=== PATIENT | female | born 1985 | race Caucasian/White ===

== ENCOUNTER 2018-11-03 11:56 | Outpatient (REF) | payer OTHER, SELFPAY ==
--- NOTE | 2018-11-03 11:30 | PAPFT_PTH ---
PATIENT: Hannah Henriquez LOC: [facility] U#:[id number] AGE/SX: 33/F ROOM: RE11/03/[address]: ALEXANDRIA Luis : 1985 BED: DIS: 11/03/2018 SPEC #: [id number] RECD: 11/03/18 12:48 STATUS: GAYATHRI REAmanda #: [id number] ZAHIDA: 11/03/18 11:[address]: Alice Solitario DEPT: [facility] Cytology RECD BY: Daily Guzman ENTERED: 11/03/18 12:48 SP TYPE: PAPFT OTHR DR: Cookie Ruiz Tissues: 1 - CX/ENDOCX FOR PAP SMEARS Procedures: PAP THIN PREP/UVM Screening HPV DNA PROBE Comments: [id number]
== END 2018-11-03 12:16 ==
LOC: LBN 11:56
PROVIDERS: PCP Physician Assistant Medical; Visit Provider Nurse Practitioner Family
DX: Z12.4 Encounter for screening for malignant neoplasm of cervix (principal); Z11.51 Encounter for screening for human papillomavirus (HPV)
CPT/HCPCS: 88142; 87624

== ENCOUNTER 2020-08-19 15:18 | Outpatient (REF) | payer OTHER, SELFPAY ==
[2020-08-21 17:40] LABS: COVID-19 RT-PCR UVMMC Result Negative (Negative)
== END 2020-08-19 15:19 | disposition home or self-care (01) ==
LOC: LBN 15:18
PROVIDERS: PCP Physician Assistant Medical; Visit Provider Physician Assistant Medical
DX: Z20.822 Contact with and (suspected) exposure to COVID-19 (principal)
CPT/HCPCS: U0003

== ENCOUNTER 2020-12-04 19:19 | Outpatient (REF) | payer OTHER, SELFPAY ==
[2020-12-05 19:56] LABS: COVID-19 RT-PCR UVMMC Result Negative (Negative)
== END 2020-12-04 19:20 | disposition home or self-care (01) ==
LOC: LBN 19:19
PROVIDERS: PCP Physician Assistant Medical; Visit Provider Physician Assistant
DX: Z20.822 Contact with and (suspected) exposure to COVID-19 (principal)
CPT/HCPCS: U0003

== ENCOUNTER 2020-12-14 20:33 | Outpatient (REF) | payer OTHER, SELFPAY ==
[2020-12-15 22:46] LABS: COVID-19 RT-PCR UVMMC Result Negative (Negative)
== END 2020-12-14 20:34 | disposition home or self-care (01) ==
LOC: LBN 20:33
PROVIDERS: PCP Physician Assistant Medical; Visit Provider Physician Assistant Medical
DX: Z20.822 Contact with and (suspected) exposure to COVID-19 (principal); J02.9 Acute pharyngitis, unspecified
CPT/HCPCS: U0003; 87070

== ENCOUNTER 2021-01-22 16:49 | Outpatient (REF) | payer OTHER, SELFPAY ==
[2021-01-24 11:25] LABS: COVID-19 RT-PCR UVMMC Result Negative (Negative)
== END 2021-01-22 16:50 | disposition home or self-care (01) ==
LOC: LBN 16:49
PROVIDERS: PCP Physician Assistant Medical; Visit Provider Nurse Practitioner Family
DX: Z20.822 Contact with and (suspected) exposure to COVID-19 (principal)
CPT/HCPCS: U0003

== ENCOUNTER 2021-01-29 09:33 | Outpatient (REF) | payer OTHER, SELFPAY ==
[2021-01-30 03:23] LABS: COVID-19 RT-PCR UVMMC Result Negative (Negative)
== END 2021-01-29 09:34 | disposition home or self-care (01) ==
LOC: LBN 09:33
PROVIDERS: PCP Physician Assistant Medical; Visit Provider Nurse Practitioner Family
DX: Z11.52 Encounter for screening for COVID-19 (principal)
CPT/HCPCS: U0003

== ENCOUNTER 2021-02-07 23:10 | Outpatient (REF) | payer OTHER, SELFPAY ==
[2021-02-09 02:06] LABS: COVID-19 RT-PCR UVMMC Result Negative (Negative)
== END 2021-02-07 23:11 | disposition home or self-care (01) ==
LOC: LBN 23:10
PROVIDERS: PCP Physician Assistant Medical; Visit Provider Physician Assistant Medical
DX: Z20.822 Contact with and (suspected) exposure to COVID-19 (principal)
CPT/HCPCS: U0003

== ENCOUNTER 2021-04-22 17:05 | Emergency (ER) | payer OTHER, SELFPAY ==
[2021-04-22] VITALS (11 sets, daily range): BP systolic 138–148; BP diastolic 52–90; PULSE 84–96; RESP 12–22; TEMP 36.2; O2SAT 98–100
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
[2021-04-22] MEDS: Omnipaque 350 MG/ML 100 ML BTL IJ (18:00)
[2021-04-22] MEDS: Normal Saline Flush 10 ML SYR IVP (18:01)
[2021-04-22] MEDS: Normal Saline 1,000 ML 1000 ML IV (18:30)
[2021-04-22] MEDS: diazePAM 5 MG TAB PO ×2 (18:35→20:40)
[2021-04-22] MEDS: Ondansetron 4 MG/2 ML VIAL IVP (18:37)
[2021-04-22] MEDS: ACETAMINOPHEN 1,000 MG/100 ML BTL 400 MG IVPB (18:39)
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
[2021-04-22 19:41] LABS: Abs Immature Grans 0.02 10^3/uL (0.0-0.06); Absolute Basophil Count 0.03 10^3/uL (0.0-0.2); Absolute Eosinophil Count 0.13 10^3/uL (0.0-0.7); Absolute Lymphocyte Count 2.47 10^3/uL (1.2-3.4); Absolute Monocyte Count 0.63 10^3/uL (0.1-0.8); Absolute Neutrophil Count 4.45 10^3/uL (1.2-6.7); Basophils % 0.4; Eosinophils % 1.7; HCT 37.4 % (36.0-46.0); HGB 12.8 g/dL (11.2-15.7); Immature Grans % 0.3; MCHC 34.2 % (32.0-36.0); MCV 90.6 fL (80-95); MPV 10.6 fL (8.0-11.0); Monocytes % 8.2; Neutrophils % 57.4; Nucleated RBC 0 %; Platelet Count 374 10^3/uL (130-400); RBC 4.13 10^6/uL (3.93-5.22); RDW-SD 39.9 fL; WBC 7.73 10^3/uL (4.4-10.8)
[2021-04-22 19:57] LABS: HCG Qual (Serum) Negative
[2021-04-22 20:00] LABS: ALT 39 U/L (14-59); AST 22 U/L (15-37); Albumin 3.5 g/dL (3.4-5.0); Alkaline Phosphatase 87 U/L (46-116); Anion Gap 10.2 mmol/L (3-11); BUN 12 mg/dL (7-18); Bilirubin, Total 0.1 mg/dL (0.2-1.0); CO2 25.8 mmol/L (21.0-32.0); Calcium 8.8 mg/dL (8.5-10.1); Chloride 103 mmol/L (98-107); Glucose 78 mg/dL (74-106); Potassium 3.4 mmol/L (3.5-5.1); Sodium 139 mmol/L (136-145); Total Protein 7.1 g/dL (6.4-8.2)
--- NOTE | 2021-04-22 20:02 | NUR.NOTE ---
cervical collar removed with clearance from MD Nursing Note:
== END 2021-04-22 20:43 | disposition home or self-care (01) ==
PROVIDERS: Emergency Provider Physician Assistant; PCP Physician Assistant Medical
DX: S16.1XXA Strain of muscle, fascia and tendon at neck level, initial encounter (principal); R51.9 Headache, unspecified; R07.9 Chest pain, unspecified; R10.11 Right upper quadrant pain; V47.5XXA Car driver injured in collision with fixed or stationary object in traffic accident, initial encounter
CPT/HCPCS: 36415; 74177; 80053; 81025; 96361; 96365; 96375; 99285; 70450; 70486; 71260; 72125; 72128; 72131; 84703; 85025; 99284; J0131; J2405; J3490

== ENCOUNTER 2021-07-04 17:17 | Outpatient (REF) | payer OTHER, SELFPAY ==
[2021-07-06 10:10] LABS: HSV Type 1 Ab, IgG Negative (Negative); HSV Type 2 Ab, IgG Negative (Negative)
[2021-07-06 11:09] LABS: COVID-19 RT-PCR UVMMC Result Negative (Negative)
== END 2021-07-04 17:18 | disposition home or self-care (01) ==
LOC: LBN 17:17
PROVIDERS: PCP Physician Assistant Medical; Visit Provider Nurse Practitioner Family
DX: K13.70 Unspecified lesions of oral mucosa (principal); Z11.59 Encounter for screening for other viral diseases; Z20.822 Contact with and (suspected) exposure to COVID-19
CPT/HCPCS: U0003; 86695; 86696

== ENCOUNTER 2021-08-16 12:15 | Outpatient (REF) | payer OTHER, SELFPAY ==
--- NOTE | 2021-08-16 11:41 | PAPFT_PTH ---
PATIENT: Hannah Henriquez LOC: [facility] U#:[id number] AGE/SX: 36/F ROOM: RE08/16/[address]: Najma Valdovinos : 1985 BED: DIS: 08/16/2021 SPEC #: [id number] RECD: 08/16/21 18:29 STATUS: GAYATHRI REAmanda #: [id number] ZAHIDA: 08/16/21 11:[address]: Najma Valdovinos DEPT: [facility] Cytology RECD BY: Daily Guzman ENTERED: 08/16/21 18:30 SP TYPE: PAPFT OTHR DR: Cookie Ruiz Tissues: 1 - CX/ENDOCX FOR PAP SMEARS Procedures: PAP THIN PREP/UVM Screening HPV DNA PROBE Comments: [id number]
== END 2021-08-16 12:16 | disposition home or self-care (01) ==
LOC: LBN 12:15
PROVIDERS: PCP Physician Assistant Medical; Visit Provider Obstetrics & Gynecology Gynecology
DX: Z11.51 Encounter for screening for human papillomavirus (HPV) (principal)
CPT/HCPCS: 88142; 87624

== ENCOUNTER 2022-06-18 08:34 | Emergency (ER) | payer OTHER, SELFPAY ==
[2022-06-18] VITALS (27 sets, daily range): BP systolic 140–154; BP diastolic 84–98; PULSE 80–97; RESP 12–31; TEMP 36.8; O2SAT 98–100
--- NOTE | 2022-06-18 08:30 | RT.EKG_ITS ---
APPROVED REPORT Exam: Resting ECG Reason for Exam: chest pain Patient Location: E HR:98 bpm ECG Measurements Heart Rate 98 AXIS MS 187 P 55 QRSd 92 QRS -29 QT 360 T 37 QTc 462 Conclusion Sinus rhythm...normal P axis, V-rate 60- 99 Low voltage, precordial leads...precordial leads <1.0mV
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
--- NOTE | 2022-06-18 09:05 | DI.RAD_ITS ---
Exam(s) XR PORTABLE CHEST AP EXAM: XR PORTABLE CHEST AP CLINICAL HISTORY: chest pain TECHNIQUE: 2D digital imaging was performed of the chest. One image was obtained. An AP view was ob tained. COMPARISON: CT CT CHEST/ABD/PEL W from 04/22/2021 FINDINGS: MEDIASTINUM: Normal. HEART: Normal. PULMONARY VASCULATURE: Normal. LUNGS: Clear. PLEURAL SPACE: No pleural effusion or pneumothorax. BONE:Within normal limits for the patient's age. OTHER FINDINGS:Normal. IMPRESSION: No acute pulmonary findings. DATA REPOSITORY: RADIATION DOSE DELIVERED:
[2022-06-18 09:15] LABS: Abs Immature Grans 0.02 10^3/uL (0.0-0.06); Absolute Basophil Count 0.06 10^3/uL (0.0-0.2); Absolute Eosinophil Count 0.16 10^3/uL (0.0-0.7); Absolute Lymphocyte Count 2.24 10^3/uL (1.2-3.4); Absolute Monocyte Count 0.51 10^3/uL (0.1-0.8); Absolute Neutrophil Count 3.54 10^3/uL (1.2-6.7); Basophils % 0.9; Eosinophils % 2.5; HCT 38.3 % (36.0-46.0); HGB 13.1 g/dL (11.2-15.7); Immature Grans % 0.3; Lymphocytes % 34.3; MCH 30.8 pg (27.0-33.0); MCHC 34.2 % (32.0-36.0); MCV 90 fL (80-95); MPV 9.8 fL (8.0-11.0); Monocytes % 7.8; Neutrophils % 54.2; Platelet Count 330 10^3/uL (130-400); RBC 4.25 10^6/uL (3.93-5.22); RDW 12.1 % (11.7-14.6); RDW-SD 39.7 fL; WBC 6.53 10^3/uL (4.4-10.8)
[2022-06-18 09:31] LABS: ALT 34 U/L (14-59); AST 17 U/L (15-37); Albumin 3.6 g/dL (3.4-5.0); Alkaline Phosphatase 88 U/L (46-116); Anion Gap 7.9 mmol/L (3-11); BUN 16 mg/dL (7-18); Bilirubin, Total 0.3 mg/dL (0.2-1.0); CO2 27.1 mmol/L (21.0-32.0); CREATININE 1.1 mg/dL (0.55-1.02); Calcium 8.8 mg/dL (8.5-10.1); Chloride 105 mmol/L (98-107); Estimated GFR 66.78 (mL/min/1.73m2); Glucose 89 mg/dL (74-106); Magnesium 2.2 mg/dL (1.8-2.4); NT-proBNP 15 pg/mL (<300); Potassium 4.1 mmol/L (3.5-5.1); Sodium 140 mmol/L (136-145); Troponin I < 50 ng/L (<or=60)
[2022-06-18 09:45] LABS: D-Dimer 222 ng/mlFEU (<500)
== END 2022-06-18 10:57 | disposition home or self-care (01) ==
PROVIDERS: Emergency Provider Emergency Medicine Emergency Medical Services; PCP Physician Assistant Medical
DX: M94.0 Chondrocostal junction syndrome [Tietze] (principal); I10 Essential (primary) hypertension; F41.9 Anxiety disorder, unspecified
CPT/HCPCS: 36415; 80053; 93005; 99283; 71045; 83735; 83880; 84484; 85025; 85379; 93010; 99284

== ENCOUNTER 2022-10-29 16:17 | Outpatient (REF) | payer OTHER, SELFPAY ==
[2022-10-31 13:00] LABS: Chlamydia Result Negative (Negative); GC Result Negative (Negative)
== END 2022-10-29 16:18 | disposition home or self-care (01) ==
LOC: LBN 16:17
PROVIDERS: PCP Physician Assistant Medical; Visit Provider Obstetrics & Gynecology
DX: Z11.3 Encounter for screening for infections with a predominantly sexual mode of transmission (principal)
CPT/HCPCS: 87491; 87591

== ENCOUNTER 2023-07-18 11:16 | Outpatient (REF) | payer OTHER, SELFPAY | END 2023-07-18 11:17 | disposition home or self-care (01) | LOC: LBN 11:16 | PROVIDERS: PCP Physician Assistant Medical; Visit Provider Physician Assistant Medical | DX: J02.9 Acute pharyngitis, unspecified (principal) | CPT/HCPCS: 87070 ==

== ENCOUNTER 2023-08-20 13:36 | Outpatient (CLI) | payer OTHER, SELFPAY ==
[2023-08-20 14:08] LABS: Vitamin D 25 Total 36.7 ng/mL (30-100)
== END 2023-08-20 13:37 | disposition home or self-care (01) ==
LOC: LBO 13:36
PROVIDERS: PCP Physician Assistant Medical; Visit Provider Obstetrics & Gynecology Gynecology
DX: F32.81 Premenstrual dysphoric disorder (principal)
CPT/HCPCS: 36415; 82306

== ENCOUNTER 2024-11-16 18:25 | Outpatient (REF) | payer OTHER, SELFPAY | END 2024-11-16 18:26 | disposition home or self-care (01) | LOC: LBN 18:25 | PROVIDERS: PCP Physician Assistant Medical; Visit Provider Nurse Practitioner Family | DX: L98.9 Disorder of the skin and subcutaneous tissue, unspecified (principal) | CPT/HCPCS: 87077; 87102; 87186; 87206 ==

== ENCOUNTER 2025-02-04 10:13 | Outpatient (CLI) | payer OTHER, SELFPAY ==
[2025-02-04 10:37] LABS: Abs Immature Grans 0.02 10^3/uL (0.0-0.06); HCT 36.0 % (36.0-46.0); HGB 12.2 g/dL (11.2-15.7); Immature Grans % 0.3 %; MCH 30.3 pg (27.0-33.0); MCHC 33.9 % (32.0-36.0); MCV 89 fL (80-95); MPV 9.8 fL (8.0-11.0); Platelet Count 330 10^3/uL (130-400); RBC 4.03 10^6/uL (3.93-5.22); RDW 12.3 % (11.7-14.6); RDW-SD 40.4 fL; WBC 7.06 10^3/uL (4.4-10.8)
[2025-02-04 10:55] LABS: Hemoglobin A1C 5.1 % (<5.7)
[2025-02-04 11:04] LABS: TSH (W/Ref FT4) 1.28 uIU/mL (0.55-4.78)
[2025-02-04 11:05] LABS: Vitamin D 25 Total 49 ng/mL (30-100)
[2025-02-04 11:07] LABS: Iron 105 ug/dL (50-170); Total Iron Binding Capacity 333 ug/dL (250-425); Transferrin Sat 32 % (15-50)
[2025-02-04 11:11] LABS: ALT 23 U/L (10-49); AST 19 U/L (<34); Albumin 4.2 g/dL (3.2-5.0); Alkaline Phosphatase 84 U/L (46-116); Anion Gap 9.6 mmol/L (3-11); BUN 14 mg/dL (9-23); Bilirubin, Total 0.3 mg/dL (0.2-1.2); CO2 25.4 mmol/L (20.0-31.0); Calcium 9.1 mg/dL (8.3-10.6); Chloride 107 mmol/L (98-107); Cholesterol 191 mg/dL (<200); Ferritin 40 ng/mL (7-271); Glucose 105 mg/dL (74-106); HDL Cholesterol 75 mg/dL (>40); Potassium 3.6 mmol/L (3.5-5.1); Sodium 142 mmol/L (136-145); Total Protein 6.8 g/dL (5.7-8.2)
== END 2025-02-04 10:14 | disposition home or self-care (01) ==
LOC: LBO 10:13
PROVIDERS: PCP Physician Assistant Medical; Visit Provider Obstetrics & Gynecology
DX: R03.0 Elevated blood-pressure reading, without diagnosis of hypertension (principal); R53.83 Other fatigue; Z72.3 Lack of physical exercise; Z01.419 Encounter for gynecological examination (general) (routine) without abnormal findings; Z13.6 Encounter for screening for cardiovascular disorders; N93.9 Abnormal uterine and vaginal bleeding, unspecified
CPT/HCPCS: 36415; 80053; 80061; 82306; 82728; 83036; 83540; 83550; 84443; 85025